=== PATIENT | female | born 1970 | race Caucasian/White ===

== ENCOUNTER 2021-08-21 15:36 | Outpatient (CLI) | payer BC, SELFPAY ==
--- NOTE | ~2021-08-21 | CT_ITS ---
EXAMINATION: CT brain wo con DATE: 08/21/2021 15:52 INDICATION: Migraine headaches. TECHNIQUE: Computed tomography (CT) of the head was performed without intravenous contrast. The dose- length product was 605.33 mGy-cm. Automated exposure control and iterative reconstruction technique w ere employed. COMPARISON: None FINDINGS: There is an acute right frontal parenchymal hemorrhage with subdural and subarachnoid compo nents. There is surrounding vasogenic edema. No ventriculomegaly. Normal campbell-white differentiation o therwise. No significant midline shift. There is also possible subtle areas of subarachnoid hemorrhag e in the left frontal sulci near the vertex. Correlate for recent history of trauma. IMPRESSION: 1. Acute right frontal lobe parenchymal hemorrhage with additional subdural and possible subarachnoid component at this location. Mild associated vasogenic edema. 2: Possible subtle subarachnoid hemorrhage of the left frontal lobe near the vertex. Dr. Eric Doe discussed with JOEY Camacho at 08/21/2021 15:58 CDT. Reviewed, dictated and finalized at location A. IMPRESSION: 1. Acute right frontal lobe parenchymal hemorrhage with additional subdural and possible subarachnoid component at this location. Mild associated vasogenic ed jeffrey. 2: Possible subtle subarachnoid hemorrhage of the left frontal lobe near the v ertex. Dr. Eric Doe discussed with JOEY Camacho at 08/21/2021 15:58 C DT.
== END 2021-08-21 15:37 | disposition home or self-care (01) ==
PROVIDERS: PCP Family Medicine; Visit Provider Nurse Practitioner Family
DX: G43.901 Migraine, unspecified, not intractable, with status migrainosus (principal); R42 Dizziness and giddiness; R60.0 Localized edema
CPT/HCPCS: 70450

== ENCOUNTER 2021-08-21 16:05 | Emergency (ER) | payer BC, SELFPAY ==
[2021-08-21] VITALS (29 sets, daily range): BP systolic 114–139; BP diastolic 56–90; PULSE 57–86; RESP 12–34; TEMP 36.4–37; O2SAT 97–100
--- NOTE | ~2021-08-21 | CT_ITS ---
Patient Name: Patient Name MR#: Patient MRN Accession#: Accession Numbers EXAMINATION: CTA brain carotid DATE: 08/21/2021 17:25 INDICATION: Intracranial hemorrhage. TECHNIQUE: Computed tomographic angiography (CTA) of the head was performed with 100 mL Omnipaque-350 intravenous contrast. CTA of the neck was performed with intravenous contrast. Automated exposure co ntrol and iterative reconstruction technique were employed. The dose-length product was 1104.49 mGy-c m. Maximum intensity projection and volume rendered 3D-reconstructions were created by the [employer] [address] on a separate workstation. COMPARISON: CT brain, same date at 3:46 PM FINDINGS: CTA NECK: Aortic arch and proximal great vessels: Normal anatomy without significant calcification. Right common carotid, carotid bifurcation, and internal carotid artery: No significant atherosclerosi s.There is 0% stenosis of the proximal right internal carotid artery relative to normal distal artery lumen diameter (NASCET criteria). Left common carotid, carotid bifurcation, and internal carotid artery: No significant atherosclerosis .There is 0% stenosis of the proximal left internal carotid artery relative to normal distal artery l umen diameter (NASCET criteria). Vertebral arteries: No significant plaque or stenosis. Other findings: None. CTA HEAD: Stable right frontal intraparenchymal and extra-axial hemorrhage, given interval technique difference . The subtle left superior frontal subarachnoid hemorrhage is obscured by contrast in vessels. 2 mm h yperdense focus within the right frontal hematoma, not present on the prior study and likely indicati ve of extraluminal contrast accumulation/extravasation, although not definitive for active bleeding. No large vessel occlusion, aneurysm, or high flow vascular malformation. IMPRESSION: 1. Stable right inferior frontal intraparenchymal hemorrhage, with a small CT angiographic spot sign , which places the patient at increased risk for hematoma growth. 2. Stable small volume bilateral extra-axial hemorrhages. 3. Normal CTA neck. 4. The source of intracranial hemorrhage is not identified in this examination. Results reported telephonically to Dr. Tobias by Dr. Gore at 5:50 PM on 08/21/2021. Reviewed, dictated and finalized at location K. IMPRESSION: 1. Stable right inferior frontal intraparenchymal hemorrhage, with a small CT angiographic spot sign, which places the patient at increased risk for hematoma growth. 2. Stable small volume bilateral extra-axial hemorrhages. 3. Normal CTA neck. 4. The source of intracranial hemorrhage is not identified in this examination . Results reported telephonically to Dr. Tobias by Dr. Gore at 5:50 PM on 2021.
--- NOTE | 2021-08-21 16:43 | ED.HA ---
HPI - Headache General Chief Complaint: Headache Stated Complaint: from CT - head bleed (frontal lobe) Time Seen by Provider: 08/21/21 16:14 Source: patient History of Present Illness HPI Narrative: Patient presents with intracranial hemorrhage. She reports she had a headache for approximately 5 days she saw her primary care doctor was treated as a migraine symptoms were not getting better she was reevaluated by her primary care doctor and was given a CT scan of her head she was found to have a bleed on the right frontal lobe and was transferred directly to the ER from the CT scanner. Patient reports she continues to have a headache for a time and achy, constant, worse with bright lights and loud noises. Reports her symptoms started approximately 5 days ago when she was up to have a bowel movement. Scribes sudden onset severe pain. She had intermittent nausea over this time. Does not currently have any nausea. Reports mild blurry vision but denies any focal numbness or weakness. Related Data Allergies Allergy/AdvReac Type Severity Reaction Status Date / Time acetaminophen AdvReac Unknown UNKNOWN Verified 08/21/21 13:54 oxycodone AdvReac Unknown UNKNOWN Verified 08/21/21 13:54 Review of Systems Review of Systems: CONSTITUTIONAL: Denies fever, chills, or sweats. EYES: Denies visual changes, redness, or discharge. ENT: Denies rhinorrhea, congestion, sore throat, or otalgia. CARDIOVASCULAR: Denies chest pain, palpitations, or edema. RESPIRATORY: Denies cough or dyspnea. GASTROINTESTINAL: Denies abdominal pain, nausea, vomiting, or diarrhea. GENITOURINARY: Denies dysuria or hematuria. SKIN: Denies rash or itching. MUSCULOSKELETAL: Denies back pain, joint pain, or myalgia. NEUROLOGIC: Denies numbness, dizziness, or weakness. PSYCHIATRIC: Denies anxiety or depression. All systems reviewed & are unremarkable except as noted in HPI and below PMFSH Family History Family History Father Family history of malignant melanoma Social History Social History Smoking status: Never smoker Alcohol intake: current Exam Narrative: GENERAL: Well-appearing, well-nourished, and in no acute distress. HEAD: Normocephalic, atraumatic. EYES: PERRLA and EOMI. ENT: Nares clear, no rhinorrhea or epistaxis. Mucous membranes moist. NECK: Supple. No masses. No JVD EXTREMITIES: Normal range of motion. No edema. SKIN: Warm, dry, no rash. NEURO: No nerves II through XII are intact patient has 5 out of 5 strength in all extremities sensation intact to light touch in all extremities alert and oriented x3. PSYCH: Normal mood and affect. Course Reevaluation(s) Reevaluation #1: On initial evaluation patient I reviewed her imaging findings with her notified she would need transfer to a higher level of care with a neurosurgeon. Patient requested [facility] Date: 08/21/21 Reevaluation #2: Case cussed with Dr. Thompson neurosurgery at [facility] recommended a CTA and loading with Rodney and he will call back regarding acceptance. Date: 08/21/21 Time: 17:06 Consultations Consultation #1: Patient no significant changes in her symptoms is resting comfortably. Patient is waitlisted at [facility] family was uncomfortable with the wait list. Contacted [facility] who accepted the ER for further evaluation. Patient comfortable with transfer plans. Date: 08/21/21 Time: 18:44 Vital Signs Vital signs: Vital Signs Temperature 36.4 C 08/21/21 16:11 Pulse Rate 86 08/21/21 16:11 Respiratory Rate 18 08/21/21 16:11 Blood Pressure 120/71 08/21/21 16:11 Pulse Oximetry 98 08/21/21 16:11 Oxygen Delivery Room Air 08/21/21 16:11 Temperature 36.9 C 08/21/21 19:35 Pulse Rate 65 08/21/21 19:30 Respiratory Rate 22 H 08/21/21 19:30 Blood Pressure 120/69 08/21/21 19:16 Pulse Oximetry 98 08/21/21 19
[2021-08-21 16:50] LABS: Basophils Absolute Auto 0.1 K/mm3 (0.0-0.1); Basophils Percent Auto 0.4 % (0.2-1.2); Eosinophils Absolute Auto 0.1 K/mm3 (0-0.3); Eosinophils Percent Auto 0.8 % (0-4.4); Hematocrit 40.9 % (37.0-47.0); Hemoglobin 13.1 g/dL (12.0-15.0); Immature Granulocyte Absolute 0.09 K/mm3 (0.00-0.031); Immature Granulocyte Percent A 0.6 % (0-0.5); Lymphocytes Absolute Auto 3.21 K/mm3 (0.9-3.2); Lymphocytes Percent Auto 22.4 % (18.3-44.2); Mean Corpuscular Hemoglobin 29.8 pg (26-34); Mean Corpuscular Volume 93.2 fl (80-100); Mean Platelet Volume 10.2 fl (7.4-10.4); Monocytes Absolute Auto 0.8 K/mm3 (0.1-0.6); Monocytes Percent Auto 5.6 % (2.6-8.5); Neutrophils Absolute Auto 10.1 K/mm3 (1.3-6.7); Neutrophils Percent Auto 70.2 % (45.5-73.1); Platelet Count Result 294 k/mm3 (150-375); Red Blood Count 4.39 M/mm3 (4.2-5.4); White Blood Count 14.4 K/mm3 (4.5-10.0)
[2021-08-21 16:57] LABS: Alanine Aminotransferase 23 U/L (6-35); Albumin Level 4.4 g/dL (3.5-5.1); Alkaline Phosphatase 85 U/L (38-126); Anion Gap 4 mmol/L (8-16); Aspartate Amino Transferase 21 U/L (14-36); Bilirubin,Total 0.6 mg/dL (0.2-1.3); Blood Urea Nitrogen 14 mg/dL (7-17); Calcium 8.7 mg/dL (8.4-10.2); Carbon Dioxide 29 mmol/L (22-30); Chloride 103 mmol/L (98-107); Estimated CRCL calculation 102 ml/min; Estimated Glomerular Filt Rate > 60; Glucose 102 mg/dL (65-110); Potassium 3.7 mmol/L (3.4-5.0); Sodium 136 mmol/L (137-145)
[2021-08-21 17:01] LABS: Prothrombin Time 12.6 Seconds (11.1-14.7)
[2021-08-21 17:02] LABS: Partial Thromboplastin Time 25.5 SECONDS (22.3-36.8)
[2021-08-21] MEDS: levETIRAcetam 500MG/NACL 100ML 500 MG/100 ML BAG 400 MG IVPB ×2 (17:43→19:07)
--- NOTE | 2021-08-21 18:55 | PC.NURSE ---
REPORT TO RENUKA AT [facility] ED
[2021-08-21 21:09] LABS: SARS-CoV-2 RNA PCR Negative
== END 2021-08-21 19:35 | disposition short-term general hospital (02) ==
PROVIDERS: Emergency Provider Emergency Medicine; PCP Family Medicine
DX: I62.9 Nontraumatic intracranial hemorrhage, unspecified (principal); Z20.822 Contact with and (suspected) exposure to COVID-19
CPT/HCPCS: 36415; 70496; 70498; 80053; 85025; 85610; 85730; 96365; 96366; 99285; C9803; J1953; Q9967; U0003; U0005

== ENCOUNTER 2021-11-01 10:00 | Outpatient (RCR) | payer BC, SELFPAY ==
--- NOTE | 2021-09-13 09:59 | OTOPEVAL ---
OCCUPATIONAL THERAPY INITIAL EVALUATION REPORT 09/13/21 Thank you for referring Alyssa Gasca to [facility].? The patient is scheduled to be seen for therapy? 1-2x/week for 4 weeks. Please review, sign, date and return this plan of care BRAEDEN. I agree with and certify that the following plan of care is medically necessary. Referring Physician Date Referring Provider: Rubin Montes MD *OT Outpatient Evaluation Evaluation Information Diagnosis Nontraumatic intracerebral hemorrhage, cerebral infarction Onset 08/16/21 Subjective Information Patient is s/p 2 weeks at [facility] Query Text:As Reported By Patient/ Day [place] where she went Family as an outpatient 5 days/week. Her and her report visual changes, visual- perceptual changes, memory deficits, and some sequencing/ processing difficulties. Prior Level of Function Activity Level (Last 3 Months) Occupation CPA, on disability right now Hand Dominance Right Activity of Daily Living Ability Independent Indoor/Home Mobility Independent Community Mobility Independent Stairs Ability Independent Pain Assessment Timing of Pain Assessment Timing of Pain Assessment Assessment Pain Scale Pain Scale Used Numeric (1 - 10) Self Report Pain Assessment Head, Frontal Reported Pain Level 2 Pain Description Aching Pain Frequency Intermittent Lowest Pain Intensity 0 Pain Score Pain Score 2: Self Report Interventions Used Interventions Used By Clinicians Rest Upper Extremity Range of Motion General Upper Extremity Range of Motion Reason Not Measured WNL/Left,WNL/Right Upper Extremity Muscle Strength Testing General Upper Extremity Strength Reason Not Measured WNL/Left,WNL/Right Gross Upper Extremity Strength Comments BUE strength is symmetrical, 5/5. 9-Hole Peg Hand Test Hand Left Scoring Time (seconds) 26 Interpretation Within Normal Range Comments Norm: 22-27 sec Right Hand Dominance Right Scoring Time (seconds) 24 Interpretation Within Normal Range Comments Norm: 19-24 sec Visual Screening Visual Perception Assessment Visual Field Deficit No Deficits Noted Visual Field No Deficit Visual Screening Diplopia No Visual Acuity - Distance Intact Visual Acuity - Near Intact Ocular Motor - Fixation Intact - Left,Intact - Right
--- NOTE | 2021-09-13 11:18 | STOPEVAL ---
SPEECH AND LANGUAGE EVALUATION Thank you for referring Alyssa Gasca to [facility].? The patient is scheduled to be seen for therapy? 3x/week for 4 weeks. Please review, sign, date and return this plan of care BRAEDEN. I agree with and certify that the following plan of care is medically necessary. Referring Physician Date Attending Provider: Rubin Montes MD Therapy Assessment Status Assessment Status Assessment Status Evaluation Outpatient Past Medical History Past Medical History Source of Past Medical History Family/Significant Other Neurological History Hx Cerebrovascular Accident (CVA) Yes: Hemorrhage 08/16/21; CVA 08/21/21 Evaluation Information Problem Diagnosis CVA Onset 08/[address] Scan at [facility], Brain bleed, angiogram, then CVA at [facility], four to five days, was discharged home on Thursday. On began day treatment at [facility], Day [facility], ending yesterday, since today was evaluation. Subjective Information Patient reports that she has Query Text:As Reported By Patient/ occasional difficulty coming Family up with words. reports patient had been getting yes/no confused, but that is improving. Patient is improving in the area of sequencing, such as washing hands, forgetting to put soap on. Pain Assessment Timing of Pain Assessment Timing of Pain Assessment Assessment Self Report Self Report Pain Level 0 Pain Score Pain Score 0: Self Report Language Evaluation Auditory Comprehension Body Part Identification (% Accuracy (0- 100 100)) Object Identification (% Accuracy (0-100 100 )) Picture Identification (% Accuracy (0- 100 100)) Simple Yes/No Questions (% Accuracy (0- 100 100)) Moderate Yes/No Questions (% Accuracy (0 100 -100)) Complex Yes/No Questions (% Accuracy (0- 60 100)) Auditory Comprehension One-Step 100 Directives (% Accuracy (0-100)) Auditory Comprehension of Two-Step 100 Directives (% Accuracy (0-100)) Auditory Comprehension of Three-Step 75 Directives (% Accuracy (0-100)) Auditory Comprehension of Complex 75 Directives (% Accuracy (0-100)) Au
--- NOTE | 2021-10-07 11:46 | OTOPEVAL ---
OCCUPATIONAL THERAPY RE-EVALUATION REPORT AND D/C SUMMARY 10/07/21 Kendal Shah , is a 51 year-old, right handed female who was diagnosed with a brain bleed and then subsequent CVA. OT treatments have been focusing on visual perceptual skills to facilitate return to higher level ADLs such as cooking, driving, and work tasks. She has made excellent progress with all materials and is now scoring WNL for her visual perceptual skills of visual closure and spatial relations. No further skilled OT is indicated at this time. Thank you for referring Alyssa Gasca to [facility].? Please review, sign, date and return this D/C Note BRAEDEN. I agree with and certify that the following plan of care is medically necessary. Referring Physician Date Referring Provider: Rubin Montes MD *OT Outpatient Re-Evaluation Diagnosis CVA Onset 08/21 Subjective Information Patient reports improved Query Text:As Reported By Patient/ abilities with visual Family perceptual skills. She reports no longer having difficulties with puzzles, driving, using her phone, or reading. reports being very pleased with her progress also. Pain Assessment Timing of Pain Assessment Timing of Pain Assessment Re-assessment Self Report Self Report Pain Level 0 Pain Score Pain Score 0: Self Report Visual Screening Visual Screening MVPT Score Visual Closure: improved from 76% accuracy to 92% Spatial Orientation: improved from 60% accuracy to 80% OT Clinical Summary OT Clinical Summary Kendal Shah , is a 51 year -old, right handed female who was diagnosed with a brain bleed and then subsequent CVA. OT treatments have been focusing on visual perceptual skills to facilitate return to higher level ADLs such as cooking, driving, and work tasks. She has made excellent progress with all materials and is now scoring WNL for her visual perceptual skills of visual closure and spatial relations. No further skilled OT is indicated at this time. OT Services Indicated No
--- NOTE | 2021-10-09 16:52 | PTOPEVAL ---
PHYSICAL THERAPY INITIAL EVALUATION. Thank you for referring Alyssa Gasca to [facility].? The patient is scheduled to be seen for therapy? 2x/week for 4 weeks. Please review, sign, date and return this plan of care BRAEDEN. I agree with and certify that the following plan of care is medically necessary. Referring Physician Date Attending Provider: Rubin Montes MD *PT Outpatient Evaluation Start: 10/09/21 Evaluation Information Diagnosis CVA Onset 08/21 Subjective Information Pt states initially she had Query Text:As Reported By Patient/ tunnel vision, but this has Family improved. She has completed outpatient therapy at [facility], she wonders today if her stability is okay. She reports her main limitation at this time in L shoulder pain. Her states she hurt her shoulder about 2 years agio and it resolved on its own. She states her strength and motion is good, her shoulder mainly hurts when sleeping or when bearing weight through her arms. She reports no falls since her stroke. Pain Assessment Left Shoulder(s) Reported Pain Level 0 Pain Description Throbbing Lowest Pain Intensity 0 Greatest Pain Intensity 8 Other Pain Aggravating Factors laying on her shoulder Upper Extremity Range of Motion Gross Upper Extremity Range of Motion B shoulder active flexion ~140 Comments B shoulder active abduction ~160 functional int rot L,R: T12,T7 functional ext rot L, R: T2,T2 - pain reports with L int rot Upper Extremity Muscle Strength Testing Gross Upper Extremity Strength Comments R shoulder flexion/abduction 4 +/5 L shoulder flexion/abduction 4 /5 - pain reported R shoulder int/ext rotation 4+ /5 L shoulder int/ext rotation 4+ /5 - increased reports of pain with resisted motions Muscle Length Testing Pectoralis Major Muscle Length (R) Moderate Tightness,(L) Moderate Tightness Pectoralis Minor Muscle Length (R) Moderate Tightness,(L) Moderate Tightness Posture Posture Evaluation View Posterior Shoulder Posture (L) Rounded,(R) Rounded,(L) Forward,(R) Forward Scapula Posture (L
--- NOTE | 2021-10-11 15:45 | STOPEVAL ---
Thank you for referring Alyssa Gasca to [facility].? She has been seen for 11 visits of Speech Therapy focusing on receptive/expressive language skills. The patient is scheduled to be seen for therapy? 2x/week for 4 weeks. Please review, sign, date and return this plan of care BRAEDEN. I agree with and certify that the following plan of care is medically necessary. Referring Physician Date Attending Provider: Rubin Montes MD Therapy Assessment Status Assessment Status Assessment Status Progress Outpatient Past Medical History Past Medical History Source of Past Medical History Family/Significant Other Neurological History Hx Cerebrovascular Accident (CVA) Yes: Hemorrhage 08/16/21; CVA 08/21/21 Pain Assessment Timing of Pain Assessment Timing of Pain Assessment Pre-Treatment Self Report Self Report Pain Level 0 Pain Score Pain Score 0: Self Report Language Evaluation Auditory Comprehension Auditory Comprehension of Simple 100 Paragraphs (% Accuracy (0-100)) Auditory Comprehension of Moderate 80 Paragraphs (% Accuracy (0-100)) Auditory Comprehension of Complex 100 Paragraphs (% Accuracy (0-100)) Factors Limiting Auditory Comprehension Decreased Attention Verbal Expression Confrontational Naming (% Accuracy (0- 100 100)) Confrontational Naming Comments 100% for both simple and complex, less familiar pictured items. Stating Object Function (% Accuracy (0- 100 100)) Sentence Formation Given a Stimulus Word 100 (% Accuracy (0-100)) Sentence Formation in Spontaneous No Impairments Conversation Connected Speech No Impairments Response Latency Mild Deficits Factors Limiting Verbal Function Aphasia Comments Related to Verbal Expression Divergent Naming: Animals in one minute: 14 (increase from 8/1 minute at initial evaluation). States in one minute: 18 states (increase from 12 in one minute). ST Clinical Summary Clinical Summary ST Clinical Summary PROGRESS NOTE This patient has been seen for a Speech Therapy evaluation and treatment sessions focusing on receptive/ expressive language and word- finding skills. Patient has exhibited remarkable progress in all areas however she continues to exhibit hesitations at times as she is
--- NOTE | 2021-10-17 15:55 | PCSTNOTE ---
Patient called & cancelled scheduled appointment this date due to emergency physician visit.]
--- NOTE | 2021-10-29 11:11 | PCPTNOTE ---
Previous physical therapy notes from 10/16/21- 10/24/21 documented on [id number].
--- NOTE | 2021-11-04 13:05 | PTOPEVAL ---
PHYSICAL THERAPY PROGRESS REPORT AND DISCHARGE SUMMARY. Thank you for referring Alyssa Gasca to [facility].? The patient is to be discharged from skilled physical therapy services at this time. Please review, sign, date and return this plan of care BRAEDEN. I agree with and certify that the following plan of care is medically necessary. Referring Physician Date Attending Provider: Rubin Montes MD *PT Outpatient Evaluation Start: 10/09/21 Evaluation Information Diagnosis CVA Onset 08/21 Subjective Information Pt states her shoulder is Query Text:As Reported By Patient/ doing well. She states Family sleeping on her shoulder has improved. She reports being able to complete all of her daily tasks and energy projects lead without an increase in pain. Pain Assessment Self Report Pain Assessment Left Shoulder(s) Reported Pain Level 0 Greatest Pain Intensity 0 Upper Extremity Range of Motion Gross Upper Extremity Range of Motion B shoulder active flexion ~140 Comments B shoulder active abduction ~160 functional int rot L,R: T10,T7 functional ext rot L, R: T2,T2 Upper Extremity Muscle Strength Testing Gross Upper Extremity Strength Comments R shoulder flexion/abduction 4+/5 L shoulder flexion/abduction 4+/5 R shoulder int/ext rotation 4+/5 L shoulder int/ext rotation 4+/5 Posture Posture Evaluation View Posterior Shoulder Posture (L) Rounded,(R) Rounded,(L) Forward,(R) Forward Scapula Posture (L) Protracted,(L) Rotated Up, (L) Depressed Special Tests-Upper Extremity Drop Arm Test Negative Left,Negative Right Hawkin's Gideon Test Negative Left,Negative Right Lift Off Test Negative Left,Negative Right Safety Assessment Factors Affecting Safety No Concerns General Exercise Exercise Description - reviewed and consolidated Query Text:Record Sets, Reps, HEP Resistance, and Position - discussed [facility], an jitendra pt has signed up for pending d/c from therapy PT Clinical Summary Alyssa presents to therapy today with a diagnosis of a CVA. She has been seen for 6 visits of skilled therapy to treat her L shoulder pain. Today she reports no pain at rest or any pain in the last
--- NOTE | 2021-11-07 14:59 | STOPEVAL ---
Thank you for referring Alyssa Gasca to [facility].? This patient was seen for 16 sessions of skilled Speech Therapy and is discharged 11/06/21 with all goals achieved. I understand patient has met goals and is being discharged from skilled Speech Therapy at this time. Referring Physician Date Attending Provider: Rubin Montes MD Therapy Assessment Status Assessment Status Assessment Status Discharge Outpatient Past Medical History Past Medical History Source of Past Medical History Family/Significant Other Neurological History Hx Cerebrovascular Accident (CVA) Yes: Hemorrhage 08/16/21; CVA 08/21/21 Pain Assessment Timing of Pain Assessment Timing of Pain Assessment Pre-Treatment Self Report Self Report Pain Level 0 Pain Score Pain Score 0: [address] Report [address] Clinical Summary Clinical Summary ST Clinical Summary PROGRESS NOTE AND DISCHARGE SUMMARY This patient was seen for a Speech Therapy evaluation on and then 15 follow-up sessions addressing higher-level word- finding, processing and communication. Today, the patient was asked to create an Aubrey spreadsheet similar to what she would have to do at work. 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 This was completed successfully. Patient was discharged with all receptive/expressive language, memory, and cognitive skills intact. Please see Plan of Care for progress. Thank you for this referral.
== END 2021-11-28 09:20 | disposition home or self-care (01) ==
LOC: ANHST 10:00
PROVIDERS: PCP Family Medicine; Visit Provider Family Medicine
DX: I63.512 Cerebral infarction due to unspecified occlusion or stenosis of left middle cerebral artery (principal); R26.89 Other abnormalities of gait and mobility; M62.81 Muscle weakness (generalized); H53.40 Unspecified visual field defects; I69.810 Attention and concentration deficit following other cerebrovascular disease
CPT/HCPCS: 92507; 92523; 97110; 97112; 97161; 97166; 97530

== ENCOUNTER 2021-11-04 12:30 | Outpatient (RCR) | payer BC, SELFPAY | END 2022-01-07 23:59 | disposition home or self-care (01) | LOC: ANHGOSHPT 12:30 | PROVIDERS: PCP Family Medicine; Visit Provider Family Medicine | DX: M25.512 Pain in left shoulder (principal) | CPT/HCPCS: 97110; 97112; 97140 ==

== ENCOUNTER 2022-01-20 00:46 | Day surgery (SDC) | payer BC, SELFPAY ==
[2022-01-02 13:42] VITALS: BMI 36.6
--- NOTE | 2022-01-17 12:57 | PM.HPGS ---
History of Present Illness History of Present Illness Consent: Risks, benefits, and alternatives have been discussed and questions answered. Patient agrees to proceed with procedure. Chief complaint: neoplasm screening Narrative: Alyssa Gasca is a 51 year old female Referred for colon cancer screening. Review of Systems Review of Systems: All systems reviewed & are unremarkable except as noted in HPI and below PMFSH Family History Family History Father Family history of malignant melanoma Social History Social History Smoking status: Never smoker Alcohol intake: current Substance use: never Living arrangements: with family Gender identity (if verbalized by the patient): Female Sexual Orientation (if Verbalized by the Patient): Straight or Heterosexual Spiritual care concerns: No Meds Home Medications and Allergies Home Medications Medication Instructions Recorded Confirmed Type aspirin 81 mg tablet,delayed 81 mg PO DAILY #90 tabs 09/12/21 01/20/22 Rx release (Adult Aspirin Regimen) loratadine 10 mg tablet (Allergy 10 mg PO DAILY #90 tabs 09/12/21 01/20/22 Rx Relief (loratadine)) aripiprazole 2 mg tablet (Abilify) 2 mg PO DAILY #90 tabs 12/13/21 01/20/22 Rx rosuvastatin 5 mg tablet (Crestor) 5 mg PO DAILY #90 tabs 12/13/21 01/20/22 Rx sertraline 100 mg tablet (Zoloft) 200 mg PO DAILY #180 tabs 12/13/21 01/20/22 Rx verapamil 80 mg tablet 80 mg PO Q8H #270 tabs 12/27/21 01/20/22 Rx valacyclovir 1 gram tablet 2,000 mg PO BID PRN fever blister 12/30/21 01/20/22 Rx (Valtrex) #12 tabs levetiracetam 750 mg tablet 250 mg PO Q12H 01/02/22 01/20/22 History (Keppra) Allergies Allergy/AdvReac Type Severity Reaction Status Date / Time acetaminophen [From Percocet] AdvReac Itching Verified 01/20/22 08:21 oxycodone [From Percocet] AdvReac Itching Verified 01/20/22 08:21 Exam Resp: Auscultation: clear to auscultation bilaterally Cardio: Rate: regular rate Rhythm: regular rhythm GI: GI Palp: Yes Soft to palpation and No Tenderness to palpation present (GI) Assessment and Plan Assessment and plan (1) Colon cancer screening: Code(s): Z12.11 - Encounter for screening for malignant neoplasm of colon Status: Acute Assessment and Plan: Colonoscopy with possible biopsy or polypectomy or cautery or injection of substances.
[2022-01-20 08:22] VITALS: BP 107/67; PULSE 81; RESP 18; TEMP 36.2; O2SAT 98; BMI 37.0
[2022-01-20] MEDS: LACTATED RINGERS 1,000 ML 150 ML IV CONT (08:30)
--- NOTE | 2022-01-20 08:37 | P.PNAN_ITS ---
Anes - Initial Pre Proc Eval Procedure: Operation Date: 01/20/22 09:30 Proposed Procedures p Screening Colonoscopy - Greg Zelaya MD Date/Time: 01/20/22 08:37 Surgeon: Greg Zelaya MD Pre Op Diagnosis: neoplasm screening Patient Data Age: 51 Gender: F Height: 1.65 m Weight: 101.1 kg Last Vital Signs Temp 97.1 F L 01/20/22 08:22 Pulse 81 01/20/22 08:22 Resp 18 01/20/22 08:22 BP 107/67 01/20/22 08:22 Pulse Ox 98 01/20/22 08:22 O2 Del Method Room Air 01/20/22 08:22 Allergies Allergy/AdvReac Type Severity Reaction Status Date / Time acetaminophen [From Percocet] AdvReac Itching Verified 01/20/22 08:21 oxycodone [From Percocet] AdvReac Itching Verified 01/20/22 08:21 Home Medications Medication Instructions Recorded Confirmed Type aspirin 81 mg tablet,delayed 81 mg PO DAILY #90 tabs 09/12/21 01/20/22 Rx release (Adult Aspirin Regimen) loratadine 10 mg tablet (Allergy 10 mg PO DAILY #90 tabs 09/12/21 01/20/22 Rx Relief (loratadine)) aripiprazole 2 mg tablet (Abilify) 2 mg PO DAILY #90 tabs 12/13/21 01/20/22 Rx rosuvastatin 5 mg tablet (Crestor) 5 mg PO DAILY #90 tabs 12/13/21 01/20/22 Rx sertraline 100 mg tablet (Zoloft) 200 mg PO DAILY #180 tabs 12/13/21 01/20/22 Rx verapamil 80 mg tablet 80 mg PO Q8H #270 tabs 12/27/21 01/20/22 Rx valacyclovir 1 gram tablet 2,000 mg PO BID PRN fever blister 12/30/21 01/20/22 Rx (Valtrex) #12 tabs levetiracetam 750 mg tablet 250 mg PO Q12H 01/02/22 01/20/22 History (Keppra) Patient hx anesthesia problems: none Family hx anesthesia problems: none Results Review: All pre-operative results and documents have been reviewed as part of the pre- operative evaluation. PMFSH Family History Family History Father Family history of malignant melanoma Social History Social History (Updated 12/13/21 @ 08:52 by Judi Thakur) Smoking status: Never smoker Alcohol intake: current Substance use: never Living arrangements: with family Gender identity (if verbalized by the patient): Female Sexual Orientation (if Verbalized by the Patient): Straight or Heterosexual Spiritual care concerns: No Anes - Eval Final PreProcedure Day of Procedure 01/20/22 08:37 Patient weight: obese Heart: regular rate and rhythm Lungs: clear to auscultation Airway: Mallampati scale class II Neurological: alert and oriented Last oral intake: >/= 8 hours ASA classification: III Emergent: no Anesthetic plan: proceed Anesthesia type and monitoring: general GIVS and standard monitoring Results Review: All pre-operative results and documents have been reviewed as part of the pre- operative evaluation. Informed Consent: The patient's anesthetic plan and its attendant risks and benefits were discussed with the patient/family/POA. Questions were solicited and answers provided to the satisfaction of the patient/family/POA.
[2022-01-20 09:56] VITALS: BP 100/54; PULSE 62; RESP 14; O2SAT 95
[2022-01-20 10:06] VITALS: BP 97/65; PULSE 64; RESP 21; O2SAT 100
[2022-01-20 10:16] VITALS: BP 100/61; PULSE 60; RESP 22; O2SAT 98
== END 2022-01-20 10:23 | disposition home or self-care (01) ==
PROVIDERS: PCP Family Medicine; Visit Provider Internal Medicine Gastroenterology
PROC: 0DJD8ZZ Inspection of Lower Intestinal Tract, Via Natural or Artificial Opening Endoscopic (ICD-10-PCS; CPT 45378; principal; 2022-01-20 09:30)
DX: Z12.11 Encounter for screening for malignant neoplasm of colon (principal); Z79.82 Long term (current) use of aspirin; E66.9 Obesity, unspecified; Z68.37 Body mass index [BMI] 37.0-37.9, adult
CPT/HCPCS: 45378; J2704; J7120